=== PATIENT | female | born 1985 | race Caucasian/White ===

== ENCOUNTER 2016-09-15 16:12 | Emergency (ER) | payer SELFPAY ==
--- NOTE | 2016-09-18 12:41 | ER ---
ADMIT: 09/15/2016 RM/LOC: ER [facility] MR#: [id number] [id number] [place] [address] Emergency Room Report SEX: F AGE: 31 : 1985 DATE: 09/15/2016 HISTORY OF PRESENT ILLNESS: The patient is a 31-year-old female, who presents to the emergency room for evaluation of her left fifth toe and two days ago, she stubbed it and the nail now is still in place, but sticking up from the base of the nail bed. PHYSICAL EXAMINATION: Her vitals are within normal limits. She is pretty concerned about because she is currently wearing a closed shoe while at work and her employer does not allow her to wear open shoe, so she is essentially asking to either remove the toenail or give her a note for work. At this point, after the physical examination, I feel that she needs to have that nail still in place to protect the bed. It will fall off by itself and there is some bruising at the base of the toe, so went ahead and I dressed it up with a nonstick Telfa and Kerlix. Gave her some instructions and a note for work for couple of days off since she is not allowed to wear shoes that are open. Use Tylenol or Motrin for pain control. Change the dressing daily and follow up with primary provider as needed. Elevation of the toe or the foot will be helpful. SHANTA Brand / Mac Moses MD / nilesl JOB #: [id number] CC: Mac Moses MD, Attending Physician Mac Donohue MD, Family Physician
== END 2016-09-15 17:40 | disposition home or self-care (01) ==
LOC: ER 16:12
DX: S91.205A Unspecified open wound of left lesser toe(s) with damage to nail, initial encounter (principal); F17.210 Nicotine dependence, cigarettes, uncomplicated; Z90.49 Acquired absence of other specified parts of digestive tract; Z98.890 Other specified postprocedural states; W22.8XXA Striking against or struck by other objects, initial encounter; Y92.009 Unspecified place in unspecified non-institutional (private) residence as the place of occurrence of the external cause